=== PATIENT | female | born 1970 | race Caucasian/White ===

== ENCOUNTER → 2019-01-07 | Outpatient (CLI) | payer BC ==
--- NOTE | 2019-01-07 14:22 | 2DMMODE ---
[facility] [place] [address] 2 D/M-MODE ECHOCARDIOGRAM Name: TREADWELLLOIDA TRAN Room #: REG CL [facility]#: [id number] ������������� Admission: 01/07/19 ������������� Attend Phys: Artie Robles Discharge: ��� ������������� ��� Date of : 74 Date of Service: 01/07/19 1421 �� Report #: [id number] �������� ��������������������������������������������[id number] THIS REPORT FOR: //name// APPROVED REPORT Study performed: 01/07/2019 13:25:04 EXAM: Comprehensive 2D, Doppler, and color-flow Echocardiogram Patient Location: Out-Patient Status: routine BSA: 1.64 Rhythm: NSR Other Information Study Quality: Adequate/Technically Difficult Technically limited study due to breast implants. Indications Syncope Chest Pain Echo Enhancing Agent Indication: Rule out Shunt Agent(s) / Amount(s) Used: Agitated Saline 6 cc 2D Dimensions RVDd: 24.52 mm IVSd: 6.60 (7-11mm) LVOT Diam: 18.38 (18-24mm) LVDd: 41.06 mm PWd: 7.42 (7-11mm) Ascending Ao: 23.14 (22-36mm) LVDs: 26.28 (25-40mm) Aortic Root: 23.71 mm IVC: 19.00 mm Volumes Left Atrial Volume (Systole) Single Plane 4CH: 21.08 mL Single Plane 2CH: 12.84 mL LA ESV Index: 12.00 mL/m2 Aortic Valve AoV Peak Jaydon.: 1.31 m/s AO Peak Gr.: 6.82 mmHg LVOT Max P.26 mmHg LVOT Max V: 0.90 m/s [facility] [address] [address] 2 D/M-MODE ECHOCARDIOGRAM Name: TREADWELLLOIDA TRAN Room #: REG [facility]#: [id number] ������������� Admission: 01/07/19 ������������� Attend Phys: Artie Robles Discharge: ��� ������������� ��� Date of : 74 Date of Service: 01/07/19 1421 �� Report #: [id number] �������� ��������������������������������������������[id number] ELLIE Vmax: 1.83 cm2 Mitral Valve E/A Ratio: 1.8 MV Decel. Time: 199.91 ms MV E Max Jaydon.: 0.84 m/s MV A Jaydon.: 0.47 m/s MV PHT: 57.97 ms IVRT: 115.34 ms Pulmonary Valve PV Peak Jaydon.: 0.80 m/s PV Peak Gr.: 2.59 mmHg Pulmonary Vein P Vein S: 0.63 m/s P Vein A: 0.20 m/s P Vein D: 0.56 m/s P Vein A Dur.: 124.6 msec P Vein S/D Ratio: 1.13 Tricuspid Valve RAP Estimate: 5.00 mmHg Left Ventricle The left ventricle is normal size. There is normal left ventricular wall thickness. The left ventricular systolic function is normal. The left ventricular ejection fraction is within the normal range. LVEF is 60%. The left ventricular diastolic function is normal. Right Ventricle The right ventricle is normal size. The right ventricular systolic function is normal. Atria The left atrium size is normal. No shunting by contrast bubble injection. The right atrium size is normal. Aortic Valve The aortic valve is normal in structure. No aortic regurgitation is present. There is no aortic valvular stenosis. Mitral Valve The mitral valve is normal in structure. Trace mitral regurgitation. No evidence of mitral valve stenosis. Tricuspid Valve The tricuspid valve is normal in structure. There is no tricuspid valve regurgitation noted. Unable to assess PA pressure. [facility] [address] [place] [address] 2 D/M-MODE ECHOCARDIOGRAM Name: LOIDA TREADWELL Room #: REG [facility]#: [id number] ������������� Admission: 01/07/19 ������������� Attend Phys: Artie Robles Discharge: ��� ������������� ��� Date of : 74 Date of Service: 01/07/19 1421 �� Report #: [id number] �������� ��������������������������������������������[id number] Pulmonic Valve The pulmonary valve is normal in structure. There is no pulmonic valvular regurgitation. Great Vessels The aortic root is normal in size. IVC is normal in size and collapses >50% with inspiration. Pericardium There is no pericardial effusion. <Conclusion> The left ventricle is normal size. There is normal left ventricular wall thickness. The left ventricular systolic function is normal. The left ventricular diastolic function is normal. The right ventricle is normal size. The left atrium size is normal. The right atrium size is normal. No shunting by contrast bubble injection. The aortic valve is normal in structure. Trace mitral regurgitation. There is no tricuspid valve regurgitation noted. ��������������������������������������������� <ELECTRONICALLY SIGNED> ���������������������������������������� By: Daniel Salmeron MD ��������������������������������������������� 01/07/19 1421 [id number] Daniel Salmeron MD /INF
== END ==
LOC: ULTRA 13:02 → CV 13:02
DX: E04.1 Nontoxic single thyroid nodule (principal); R07.9 Chest pain, unspecified; R55 Syncope and collapse

== ENCOUNTER → 2019-02-15 | Outpatient (CLI) | payer BC | LOC: NUC 08:07 | DX: R55 Syncope and collapse (principal); R07.9 Chest pain, unspecified; Z79.899 Other long term (current) drug therapy ==

== ENCOUNTER → 2019-07-14 | Outpatient (CLI) | payer BC, OTHER | LOC: ULTRA 15:30 | DX: E04.1 Nontoxic single thyroid nodule (principal) ==